=== PATIENT | male | born 1985 | race Two or more races ===

== ENCOUNTER 2022-08-21 22:17 | Emergency (ER) | payer MEDICAID ==
[~2022-08-21] VITALS: Ht 170.2 cm; Wt 68.0 kg
--- NOTE | 2022-08-21 22:39 | NUR ---
Patient to bed #2-a via wheel chair, assisted into bed, informed of plan of care, MD at bedside for exam. No s/s of any distress noted.
[2022-08-21] MEDS ORDERED: LIDOCAINE HCL 2% 20 ML VIAL TP ONE (22:45)
[2022-08-21] MEDS ORDERED: OXYCODONE/APAP 5-325 MG TABLET PO ONE (23:00)
[2022-08-21] MEDS ORDERED: BACITRACIN ZINC OINT 15 GM TUBE ONE (23:07)
[2022-08-21 23:09] VITALS: BP 130/86
[2022-08-21] MEDS ORDERED: HYDR-3972 PO (23:10)
--- NOTE | 2022-08-21 23:17 | NUR ---
Drsg. applied as per order, ACI given, remains stable for discharge home.
== END 2022-08-21 23:17 | disposition home or self-care (01) ==
LOC: ER 22:17
DX: S81.811A Laceration without foreign body, right lower leg, initial encounter (principal); W27.8XXA Contact with other nonpowered hand tool, initial encounter; Y92.89 Other specified places as the place of occurrence of the external cause; F17.210 Nicotine dependence, cigarettes, uncomplicated
CPT/HCPCS: A4663